=== PATIENT | female | born 1980 | race Caucasian/White ===

== ENCOUNTER 2017-01-18 20:04 | Emergency (ER) | payer OTHER ==
[2017-01-18 20:11] VITALS: BP 134/78
--- NOTE | 2017-01-18 20:28 | ED ANKLE/FOOT INJURY COMPLAINT ---
History of Present Illness General Chief Complaint: Foot or Ankle Injury Stated Complaint: PT DROP BOILING WATER ON RT FOOD Source: patient Exam Limitations: no limitations Vital Signs & Intake/Output Vital Signs & Intake/Output Vital Signs Date Time Temp Pulse Resp B/P B/P Pulse O2 O2 Flow FiO2 Mean Ox Delivery Rate 01/18 2011 97.7 82 20 134/78 98 Allergies Coded Allergies: choline fenofibrate (From TRILIPIX) (ANAPHYLAXIS 01/18/17) Triage Note: PER PT DROPPED BOILING WATER ON RT FOOT APPROX 1900,PUT ICE WATER ON RIGHT AWAY. BLISTER BROKEN TO TOP OF RT FOOT. Triage Nurses Notes Reviewed? yes Occurred: just prior to arrival Duration: hour(s): (1), constant Timing: recent history Severity: moderate Severity Numbers: 6 Pain/Injury Location: Right: Foot. Method of Injury: burn No Modifying Factors: none Associated Symptoms: none : No Patient currently breastfeeds: No HPI: 36-year-old female presents to the ER status post sustaining burn to her right foot when she dropped a pot of boiling water on her foot accidentally now presents complaining of [id number] aching pain. She took Tylenol prior to arrival with improvement and put her foot in an ice bath which she states did help. Her last tetanus is unknown. She denies any modifying factors or associated symptoms no numbness or tingling (YURI MONROY) Reconcile Medications Bupropion HCl (Bupropion HCl Sr) 150 MG TABLET.ER 1 TAB PO BID SMOKING CESSATION (Reported) Ibuprofen 800 MG TABLET 1 TAB PO PRN PAIN (Reported) Tretinoin 0.05 % CREAM..G. 1 DEBO TOP QPM FACE (Reported) apply to affected area(s) Triamcinolone Acetonide 0.1 % CREAM..G. 1 DEBO TOP BID SKIN (Reported) (EULA GRANGER MD) Past History Travel History Traveled to [place] past 21 day No Medical History Any Pertinent Medical History? none Neurological: NONE EENT: NONE Cardiovascular: NONE Respiratory: NONE Gastrointestinal: NONE Hepatic: NONE Renal: NONE Musculoskeletal: NONE Psychiatric: NONE Endocrine: NONE Surgical History Surgical History: none Psychosocial History What is your primary language [place] Tobacco Use: Current Daily Use Daily Tobacco Use Amount/Type: => 5 Cigarettes daily Family History Hx Contributory? No (YURI MONROY) Review of Systems Review of Systems Constitutional: Reports: see HPI. All Other Systems: Reviewed and Negative Comments Review of systems: See HPI, All other systems negative. Constitutional, no chills no fever, no malaise HEENT: No visual changes no sore throat no congestion, Cardiovascular: No chest pain , no palpitation Skin: See HPI Respiratory: No dyspnea no cough no sputum Muscle skeletal: No joint pain, no joint swelling, no back pain, no neck pain, Neurologic: no headache Psych: No stress no depression,. Heme/endocrine: No bruising no bleeding Immunology: No lymphadenopathy (YURI MONROY) Physical Exam Physical Exam General Appearance: well developed/nourished, no apparent distress, alert Leg/Knee/Thigh Left: normal range of motion Comments: Well-developed well-nourished patient in no apparent distress. HEENT: Atraumatic, extraocular motion intact Neck: Supple, FROM Back: FROM Respiratory: No respiratory distress. Patient speaking in full complete sentences Extremities: full range of motion Neuro: awake, alert, and oriented to person, place and time. There were no obvious focal neurologic abnormalities. Skin: Superficial burn noted to the dorsal aspect of the right foot and right second and third toes, blisters are intact. Sensation and capillary refill is within normal limits, the skin is intact there is no abrasions or ulcerations Warm & dry;No appreciable rash on exposed skin Psych: Mood affect normal, normal memory normal judgment. (YURI MONROY) Progress Differential Diagnosis: SUPERFICIAL VERSUS PARTIAL THICKNESS BURN Plan of Care: Current Medications Sig/Melissa Start time Last Medication Dose Stop Time Status Admin Tetanus/Diphtheria 0.5 ML ONCE ONE 01/18 2045 UNVr Toxoids Adsorbed 01/18 2046 (Decava) Dressing was applied discussed the patient return precautions tetanus IM ordered she feels comfortable plan Tylenol Motrin for pain (YURI MONROY) Departure Departure Time of Disposition: 2038 Disposition: HOME OR SELF CARE Condition: Stable Clinical Impression Primary Impression: Superficial burn Referrals: AFSHAN INTERIANO,ANGELES Camacho (PCP/Family) Additional Instructions: TYLENL OR MOTRIN. DO NOT POP BLISTERS. BACITRACIN DISCUSSED IF BLISTERS POP ON THEIR OWN, KEEP COVERED. ICE PACKS, COOL BATHS NEEDED. FOLLOW UP WITH YOUR PMD, RETURN TO THE ER WITH ANY CONCERNS OR SIGNS OF INFECTION Departure Forms: Customer Survey General Discharge Information (DEBRA FROST,YURI) PA/DESIGN CELL ENGINEER Co-Sign Statement Statement: ED Attending supervision documentation- I saw and evaluated the patient. I have also reviewed all the pertinent lab results and diagnostic results. I agree with the findings and the plan of care as documented in the PA's/DESIGN CELL ENGINEER's documentation. x I have reviewed the ED Record and agree with the PA's/DESIGN CELL ENGINEER's documentation. [] Additions or exceptions (if any) to the PAs/DESIGN CELL ENGINEER's note and plan are summarized below: [] (ELKIN BOND,EULA)
[2017-01-18] MEDS ORDERED: IBUPROFEN800 M1 PO (20:40)
[2017-01-18] MEDS ORDERED: TRIAMCINOLONE A15 G1 TOP (20:41)
[2017-01-18] MEDS ORDERED: TRETINOIN20 G1 TOP (20:41)
[2017-01-18] MEDS ORDERED: BUPROPION HCL150 M4 PO (20:42)
== END 2017-01-18 21:00 ==
LOC: ERH 20:04
DX: T25.231A Burn of second degree of right toe(s) (nail), initial encounter (principal); T25.122A Burn of first degree of left foot, initial encounter; X12.XXXA Contact with other hot fluids, initial encounter; Y93.9 Activity, unspecified; Y92.9 Unspecified place or not applicable
CPT/HCPCS: 90471; 90714